=== PATIENT | female | born 1945 | race Caucasian/White ===

== ENCOUNTER 2023-06-26 16:14 | Emergency (ER) | payer MEDICARE, OTHER ==
[~2023-06-26] VITALS: Ht 162.6 cm; Wt 54.4 kg
[2023-06-26 16:14] VITALS: BP 159/74; TEMP 98.2; O2SAT 97
[~2023-06-26 16:14] MED LIST: AMLO-212 PO; ASPI-605 PO; ATOR10TA PO; DICL75TA5 PO; DIGO125T PO; DULO30CA2 PO; IBAN150T16 PO; LANS30CA56 PO; LORA0.5T PO; MECL-159 PO; METO25TA4 PO; MISO200T62 PO; RAMI2.5C55 PO; VALS80TA2 PO
== END 2023-06-26 21:31 | disposition home or self-care (01) ==
LOC: ER 16:14
DX: S92.355A Nondisplaced fracture of fifth metatarsal bone, left foot, initial encounter for closed fracture (principal); I10 Essential (primary) hypertension; W18.40XA Slipping, tripping and stumbling without falling, unspecified, initial encounter; Y93.89 Activity, other specified; Y92.89 Other specified places as the place of occurrence of the external cause; Y99.8 Other external cause status
CPT/HCPCS: 73630-TC